=== PATIENT | male | born 1955 | race Caucasian/White ===

== ENCOUNTER → 2017-12-19 | Outpatient (CLI) | payer OTHER ==
[~2017-12-19] MED LIST: METOPROLOL PO; PREDNISONE PO; VENL37.52 PO
[2017-12-19 14:34] LABS: BASOPHILS # (AUTO) 0.03 x10^3/uL (0-0.1); BASOPHILS % (AUTO) 1 % (0-1); EOSINOPHILS # (AUTO) 0.07 x10^3/uL (0-0.4); EOSINOPHILS % (AUTO) 1 % (1-7); LYMPHOCYTES # (AUTO) 1.08 x10^3/uL (1-3.4); LYMPHOCYTES % (AUTO) 20 % (22-44); MD NO; MEAN CORPUSCULAR HEMOGLOBIN 30.8 pg (27.5-34.5); MEAN CORPUSCULAR HGB CONC 34.5 g/dL (33.2-36.2); MEAN CORPUSCULAR VOLUME 89.3 fL (81-97); MEAN PLATELET VOLUME 7.8 fL (7.4-10.4); MONOCYTES # (AUTO) 0.44 x10^3/uL (0.2-0.8); MONOCYTES % (AUTO) 8 % (2-9); NEUTROPHILS # (AUTO) 3.88 x10^3/uL (1.8-6.8); NEUTROPHILS % (AUTO) 71 % (42-75); PLATELET COUNT 244 x10^3/uL (130-400); RED BLOOD COUNT 4.99 x10^6/uL (4.38-5.82); RED CELL DISTRIBUTION WIDTH 14.3 % (9.4-14.8)
[2017-12-19 14:39] LABS: MICROSCOPIC NOT IND
[2017-12-19 14:46] LABS: ALANINE AMINOTRANSFERASE 67 U/L (12-78); ALBUMIN 4.3 g/dL (3.4-5.0); ANION GAP 8 mmol/L (5-15); CALCIUM 8.4 mg/dL (8.5-10.1); CHLORIDE 106 mmol/L (98-107); INTERNATIONAL NORMALIZED RATIO 0.98 (0.93-1.1); PROTHROMBIN TIME 10.2 Seconds (9.6-11.5)
[2017-12-19 14:49] LABS: ALKALINE PHOSPHATASE 62 U/L (45-117); BILIRUBIN,TOTAL 0.9 mg/dL (0.2-1.0); CREATININE 1.24 mg/dL (0.7-1.3); TOTAL PROTEIN 7.9 g/dL (6.4-8.2)
== END | disposition home or self-care (01) ==
LOC: STAR 13:25
PROVIDERS: ATTEND Urology
DX: Z01.818 Encounter for other preprocedural examination (principal); C61 Malignant neoplasm of prostate
CPT/HCPCS: 36415; 80053; 81003; 85025; 85610; 85730; 87086; 93005

== ENCOUNTER 2017-12-30 06:57 | Inpatient (IN) | payer OTHER ==
[~2017-12-30] VITALS: Ht 177.8 cm; Wt 106.2 kg
[~2017-12-30 06:57] MED LIST changes: +BUPIVACAINE/PF 0.25% ONE; +EPINEPHRINE 1 MG/ML, 1ML ONE; +THROMBIN 5,000 UNIT VIAL TP ONE
[2017-12-30] MEDS ORDERED: LACTATED RINGERS 1,000 ML IV SCH (07:30)
[2017-12-30] MEDS ORDERED: METO25TA35 PO (07:34)
[2017-12-30] MEDS ORDERED: HYDR-3240 PO (07:34)
[2017-12-30] MEDS ORDERED: ESOM20CA PO (07:34)
[2017-12-30] MEDS ORDERED: PREDNISONE PO (07:34)
[2017-12-30] MEDS ORDERED: ANTIBIOTIC PO (07:34)
[2017-12-30] MEDS ORDERED: LIDOCAINE-MPF 1%, 2ML ONE (07:36)
[2017-12-30] MEDS ORDERED: LIDOCAINE-MPF 1%, 2ML INFIL ONE (08:00)
[2017-12-30] MEDS ORDERED: METOCLOPRAMIDE 5 MG/ML, 2ML ONE (08:50)
[2017-12-30] MEDS ORDERED: PROPOFOL 10 MG/ML, 20ML ONE (08:50)
[2017-12-30] MEDS ORDERED: NEOSTIGMINE 1 MG/ML, 10ML ONE (08:50)
[2017-12-30] MEDS ORDERED: ROCURONIUM 10 MG/ML,10ML ONE (08:50)
[2017-12-30] MEDS ORDERED: ONDANSETRON 2MG/ML, 2ML ONE (08:50)
[2017-12-30] MEDS ORDERED: GLYCOPYRROLATE 0.2MG/1ML, 5ML ONE (08:50)
[2017-12-30] MEDS ORDERED: DEXAMETHASONE 4 MG/ML, 1ML ONE (08:50)
[2017-12-30] MEDS ORDERED: CEFAZOLIN 1,000 MG ONE (08:50)
[2017-12-30] MEDS ORDERED: BUPIVACAINE/PF-EPI 0.25% 1:200K INFIL ONE (09:45)
[2017-12-30] MEDS ORDERED: FENTANYL PF 100 MCG/2ML IV PRN (14:00)
[2017-12-30] MEDS ORDERED: ONDANSETRON 2MG/ML, 2ML IVPush PRN (14:00)
[2017-12-30] MEDS ORDERED: HYDROmorphone 1 MG/ML, 1ML IV PRN (14:00)
[2017-12-30 15:25] VITALS: BP 129/79
[2017-12-30] MEDS ORDERED: LACTATED RINGERS 500 ML IV PRN (16:30)
[2017-12-30] MEDS: D5%-0.45NACL+KCL 20MEQ 1,000 ML IV SCH (16:31)
[2017-12-30] MEDS: FAMOTIDINE 20 MG/2 ML IVPush SCH (17:04)
[2017-12-30] MEDS: MORPHINE SULFATE 4 MG/ML, 1ML IVPush PRN (18:19)
[2017-12-30] MEDS: CEFAZOLIN PMX 1GM/50ML 50 ML IVPB SCH (18:20)
[2017-12-30 18:59] VITALS: BP 136/78
[2017-12-31 00:02] VITALS: BP 120/85
[2017-12-31] MEDS: MORPHINE SULFATE 4 MG/ML, 1ML IVPush PRN ×5 (00:11→20:47)
[2017-12-31] MEDS: D5%-0.45NACL+KCL 20MEQ 1,000 ML IV SCH ×4 (00:14→23:31)
[2017-12-31] MEDS: CEFAZOLIN PMX 1GM/50ML 50 ML IVPB SCH (03:45)
[2017-12-31] MEDS: FAMOTIDINE 20 MG/2 ML IVPush SCH ×2 (04:49→16:19)
[2017-12-31] MEDS: ONDANSETRON 2MG/ML, 2ML IV PRN ×2 (04:59→17:34)
[2017-12-31 05:48] LABS: ANION GAP 6 mmol/L (5-15); CALCIUM 8.1 mg/dL (8.5-10.1); CHLORIDE 106 mmol/L (98-107)
[2017-12-31 05:49] LABS: CREATININE 1.28 mg/dL (0.7-1.3)
[2017-12-31 07:53] VITALS: BP 116/78
[2017-12-31 08:00] VITALS: BP 115/72
[2017-12-31] MEDS: METOPROLOL TARTRATE 25 MG TABLET PO SCH (08:34)
[2017-12-31] MEDS: VENLAFAXINE XR 37.5MG CAP.ER.24H PO SCH (08:34)
[2017-12-31] MEDS: ENOXAPARIN 40 MG/0.4 ML SQ SCH (08:35)
[2017-12-31] MEDS: HYDROcodone/APAP 5/325 TABLET PO PRN (08:59)
[2017-12-31 13:36] VITALS: BP 119/76
[2017-12-31 20:40] VITALS: BP 123/69
[2017-12-31] MEDS: SIMETHICONE 125 MG CHEW TAB PO PRN (20:47)
[2018-01-01 02:44] VITALS: BP 106/69
[2018-01-01] MEDS: D5%-0.45NACL+KCL 20MEQ 1,000 ML IV SCH ×2 (04:00→13:00)
[2018-01-01] MEDS: FAMOTIDINE 20 MG/2 ML IVPush SCH (06:00)
[2018-01-01] MEDS: SIMETHICONE 125 MG CHEW TAB PO PRN (07:12)
[2018-01-01 07:18] VITALS: BP 122/77
[2018-01-01] MEDS: VENLAFAXINE XR 37.5MG CAP.ER.24H PO SCH (08:57)
[2018-01-01] MEDS: ENOXAPARIN 40 MG/0.4 ML SQ SCH (08:57)
[2018-01-01] MEDS: METOPROLOL TARTRATE 25 MG TABLET PO SCH (08:58)
[2018-01-01] MEDS: HYDROcodone/APAP 5/325 TABLET PO PRN ×2 (09:06→14:00)
[2018-01-01 13:08] VITALS: BP 110/59
[2018-01-01] MEDS ORDERED: HYDR-3240 PO (14:29)
== END 2018-01-01 14:47 | disposition home or self-care (01) | DRG 708 ==
LOC: OUT 06:57 → EDSTATUS 09:00 → 4NOR 15:20 → OUT 15:33 → 4NOR 15:34 → DCLOUNGE 01-01 14:25
PROVIDERS: ADMIT Urology; ATTEND Urology
PROC: 07BC4ZZ Excision of Pelvis Lymphatic, Percutaneous Endoscopic Approach (ICD-10-PCS; 2017-12-30)
PROC: 0TBC4ZX Excision of Bladder Neck, Percutaneous Endoscopic Approach, Diagnostic (ICD-10-PCS; 2017-12-30)
PROC: 8E0W4CZ Robotic Assisted Procedure of Trunk Region, Percutaneous Endoscopic Approach (ICD-10-PCS; 2017-12-30)
PROC: 0VT04ZZ Resection of Prostate, Percutaneous Endoscopic Approach (ICD-10-PCS; principal; 2017-12-30 09:00)
DX: C61 Malignant neoplasm of prostate (principal); K66.0 Peritoneal adhesions (postprocedural) (postinfection)
CPT/HCPCS: 36415; 80048; 85014; 85018; 86850; 86900; 88305; 88309; 88331; C1729; J0171; J0690; J1100; J1650; J2250; J2405; J2704; J2710; J3010; J3490; J7512; C1760; J2175; J2765; J3480; J7120; S0028